=== PATIENT | male | born 1930 | race Caucasian/White ===

== ENCOUNTER 2019-08-26 12:00 | Inpatient (IN) | payer MEDICARE ==
[~2019-08-26] VITALS: Ht 175.3 cm; Wt 102.9 kg
[2019-08-26] MEDS ORDERED: IPRATROPIUM BROMIDE 0.5 MG/2.5 ML NEBU. NEB ONE (12:15)
--- NOTE | 2019-08-26 12:22 | PHYS DOC ---
Adult General Chief Complaint Chief Complaint: SHORTNESS OF BREATH HPI HPI 89-year-old male presents via EMS from [facility]. The patient was sent here because he has had an increasing cough and shortness of breath. He was unable to tolerate his therapy yesterday morning and could not do it again this morning. Patient is unsure if he's had a fever. His cough is mostly dry but he had some sputum production today. He denies nausea, vomiting, diarrhea, chest pain. He has a history of COPD. He is on oxygen 12/02. He has been doing physical therapy because of COPD. He does breathing treatments daily. He has no other complaints at this time. Review of Systems Review of Systems Constitutional: Denies fever or chills [] Eyes: Denies change in visual acuity, redness, or eye pain [] HENT: Denies nasal congestion or sore throat [] Respiratory: cough with shortness of breath [] Cardiovascular: No additional information not addressed in HPI [] GI: Denies abdominal pain, nausea, vomiting, bloody stools or diarrhea [] : Denies dysuria or hematuria [] Musculoskeletal: Denies back pain or joint pain [] Integument: Denies rash or skin lesions [] Neurologic: Denies headache, focal weakness or sensory changes [] Endocrine: Denies polyuria or polydipsia [] All other systems were reviewed and found to be within normal limits, except as documented in this note. Current Medications Current Medications Current Medications Medications (Trade) Dose Ordered Sig/Mana Start Time Stop Time Status Last Admin Dose Admin Ipratropium Marquand (Atrovent) 0.5 mg 1X ONCE 08/26/19 12:15 08/26/19 12:16 UNV Allergies Allergies Allergies Uncoded Allergies Type Severity Reaction Last Updated Verified crab meat Allergy Unknown 08/26/19 Physical Exam Physical Exam Constitutional: Well developed, obese, well nourished, no acute distress, non- toxic appearance. [] HENT: Normocephalic, atraumatic, bilateral external ears normal, oropharynx moist, no oral exudates, nose normal. [] Eyes: PERRLA, EOMI, conjunctiva normal, no discharge. [] Neck: Normal range of motion, no tenderness, supple, no stridor. [] Cardiovascular:Heart rate regular rhythm, no murmur [] Lungs & Thorax: Bilateral breath sounds diminished and with expiratory wheezing [] Abdomen: Bowel sounds normal, soft, no tenderness, no masses, no pulsatile masses. [] Skin: Warm, dry, no erythema, no rash. [] Back: No tenderness, no CVA tenderness. [] Extremities: No tenderness, no cyanosis, no clubbing, ROM intact, no edema. [] Neurologic: Alert and oriented X 3, normal motor function, normal sensory function, no focal deficits noted. [] Psychologic: Affect normal, judgement normal, mood normal. [] EKG EKG [] Radiology/Procedures Radiology/Procedures [] Impressions: PORTABLE CHEST 1V History: Shortness of breath Comparison: None. Findings: Patchy bibasilar opacities. Small left and possible right pleural effusions. No pneumothorax. Impression: 1. Small left pleural effusion. Possible small right pleural effusion. 2. Patchy bibasilar opacities, may represent atelectasis or consolidations. Electronically signed by: Jamaal Santos DO (08/26/2019 12:45 PM) [id number] DICTATED AND SIGNED BY: JAMAAL SANTOS DO DATE: 08/26/19 1245 CC: JENNIFER BERNAL DO; ANTONIO WALLACE MD ~ Course & Med Decision Making Course & Med Decision Making Pertinent Labs and Imaging studies reviewed. (See chart for details) The patient was wheezing on initial exam. I will give him a DuoNeb treatment and 125 Solu-Medrol. His chest x-ray shows bilateral atelectasis, but does not rule out pneumonia. I believe he is at least having a COPD exacerbation. I will admit him to the hospital with the same. I spoke with Dr. Wallace and he has agreed to admit the patient for further treatment. I have given the patient's grandma Rocephin and 500 mg of azithromycin to cover his chest x-ray finding of possible pneumonia. [] Dragon Disclaimer Dragon Disclaimer This electronic medical record was generated, in whole or in part, using a voice recognition dictation system. Departure Departure: Impression: Primary Impression: COPD exacerbation Disposition: ADMITTED INPATIENT Admitting Physician: Antonio Wallace Condition: STABLE Referrals: PCP,NO (PCP) JENNIFER BERNAL DO Aug 26, 2019 12:22
[2019-08-26] MEDS ORDERED: methylPREDNISolone SOD SUCC PF 125 MG/2 ML VIAL. IV ONE (12:30)
[2019-08-26] MEDS ORDERED: IPRATRPIUM/ALBUTEROL 0.5/2.5MG 3 ML NEBU. ONE (12:33)
[2019-08-26 12:42] LABS: CALCIUM 8.1 mg/dL (8.5-10.1); CREATININE 1.1 mg/dL (0.7-1.3); GFR 63.3; POTASSIUM 4.4 mmol/L (3.5-5.1)
--- NOTE | 2019-08-26 12:48 | RAD ---
PORTABLE CHEST 1V History: Shortness of breath Comparison: None. Findings: Patchy bibasilar opacities. Small left and possible right pleural effusions. No pneumothorax. Impression: 1. Small left pleural effusion. Possible small right pleural effusion. 2. Patchy bibasilar opacities, may represent atelectasis or consolidations. Electronically signed by: Jamaal Santos DO (08/26/2019 12:45 PM) [id number]
[2019-08-26 12:54] LABS: ALBUMIN 2.7 g/dL (3.4-5.0); ALBUMIN/GLOBULIN RATIO 0.9 (1.0-1.7); TOTAL BILIRUBIN 0.1 mg/dL (0.2-1.0); TOTAL PROTEIN 5.7 g/dL (6.4-8.2)
[2019-08-26 12:59] LABS: BASO % 0 % (0-3); EOS % 1 % (0-3); HEMATOCRIT 37.9 % (39.0-53.0); HEMOGLOBIN 12.2 g/dL (13.0-17.5); LYMPH # 0.9 x10^3/uL (1.0-4.8); LYMPH % 23 % (24-48); MEAN CORPUSCULAR HEMOGLOBIN 32 pg (25-35); MEAN CORPUSCULAR HGB CONC 32 g/dL (31-37); MEAN CORPUSCULAR VOLUME 100 fL (79-100); MONO # 0.5 x10^3/uL (0.0-1.1); MONO % 12 % (0-9); NEUT # 2.6 x10^3uL (1.8-7.7); NEUT % 64 % (31-73); PLATELET COUNT 148 x10^3/uL (140-400); RED BLOOD COUNT 3.81 x10^6/uL (4.30-5.70); RED CELL DISTRIBUTION WIDTH 13.4 % (11.5-14.5); WHITE BLOOD COUNT 4.1 x10^3/uL (4.0-11.0)
[2019-08-26 13:05] LABS: INFLUENZA A PATIENT NEGATIVE (NEGATIVE); INFLUENZA B PATIENT NEGATIVE (NEGATIVE)
[2019-08-26 14:11] LABS: BACTERIA,URINE 0 /HPF (0-FEW); BILIRUBIN,URINE NEG (NEG); CLARITY,URINE CLEAR; COLOR,URINE YELLOW; GLUCOSE,URINE NEG (NEG); NITRITE,URINE NEG (NEG); RBC,URINE OCC /HPF (0-2); SQUAMOUS EPITHELIAL CELL,UR FEW /LPF; UROBILINOGEN,URINE 0.2 mg/dL (0.2 mg/dL); WBC,URINE OCC /HPF (0-4)
[2019-08-26] MEDS ORDERED: AZITHROMYCIN 250 MG TABLET. PO ONE (14:30)
[2019-08-26] MEDS ORDERED: cefTRIAXone SODIUM 1 GM VIAL ONE (14:53)
[2019-08-26] MEDS ORDERED: IV NORMAL SALINE 50ML 50 ML ONE (14:53)
[2019-08-26 15:56] VITALS: BP 122/65
--- NOTE | 2019-08-26 16:42 | EKG ---
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
--- NOTE | 2019-08-26 18:08 | NUR ---
Pt arrived via EMS from ED for COPD exacerbation. Pt accompanied by family. Vital Signs stable upon arrival. Pt came with 20 g IV in L forearm. 2L 02 NC, pt denies any pain at this time. Pt is wearing non-skid socks, bed in lowest position, oriented pt to floor and unit policies.
--- NOTE | 2019-08-26 19:14 | HP ---
ADMIT DATE: 08/26/2019 HISTORY OF PRESENT ILLNESS: The patient is an 89-year-old male patient currently residing at [facility] for rehabilitation as he was admitted recently to the [facility] with confusion, cough. He was diagnosed with community-acquired pneumonia and acute kidney injury. There he was treated with IV Rocephin and doxycycline, rehydration and oxygen supplementation and was transferred to [facility] to continue the process of rehabilitation. He was brought to the Emergency Room of [facility] because of increasing cough and shortness of breath. He was unable to tolerate his therapy and could not participate with physical therapy yesterday morning, could not it again this morning. He has cough that is mostly dry, but he has some sputum production. He denies any nausea or vomiting. Denied any chest pain. He is known to have COPD and is oxygen and oxygen 24 hours a day, 7 days a week. He was extensively investigated in the Emergency Room and his chest x-ray showed that he has small left-sided pleural effusion and possible small right-sided pleural effusion, has patchy bibasilar opacities, may represent atelectasis or consolidation. He has had lab work done, which showed that his influenza A and B were negative. Urinalysis was unremarkable. His white cell count was normal. His chemistry showed that the troponin was slightly elevated at 0.028 and his chest x-ray was admitted showed patchy bibasilar opacities, small left and possible right pleural effusion, no pneumothorax. However, his beta natriuretic peptide was only 157 and was admitted with COPD exacerbation. We did start him on IV antibiotic and some ceftriaxone and Zithromax as well as steroids, will do 2 more sets of cardiac enzyme given bilateral pleural effusion, probably has also an element of congestive heart failure. PAST MEDICAL HISTORY: Significant for chronic obstructive pulmonary disease, chronic hypoxic respiratory failure, erectile dysfunction, migraine headache, vitamin D deficiency, benign prostatic hypertrophy, squamous cell carcinoma, tobacco use disorder, chronic sinusitis, peripheral vascular disease. 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 PAST SURGICAL HISTORY: Noncontributory. SOCIAL HISTORY: He has flexible cystoscopy. He has also transurethral resection of the prostate, 5 back surgeries, bilateral carpal tunnel release, left hand surgery and for Dupuytren's contracture. FAMILY HISTORY: Noncontributory. SOCIAL HISTORY: He is . He lives alone for the last 4 years. He has 3 sons and 1 daughter. Quit smoking at the beginning of this year, has also stopped drinking. He used to drink heavily. He drinks minimally whiskey. 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 ALLERGIES: HE IS ALLERGIC TO CRAB MEAT. He has no known drug allergies. His code status is full. MEDICATIONS: He is currently on following medications: He is on Tylenol 650 mg every 4 hours as needed, albuterol sulfate 2 puffs every 6 hours. He is on diphenhydramine 25 mg at bedtime. He is on finasteride 5 mg at bedtime, guaifenesin 400 mg by mouth every 8 hours. He is on ipratropium bromide, albuterol sulfate 0.5-2.5 mg in 3 mL by nebulizer every 4 hours. He is on Pepcid 20 mg daily. He is on Singulair 10 mg at bedtime, Symbicort 160/4.5 two puffs twice a day and he is on tamsulosin. He is on terazosin 10 mg at bedtime, Topamax 25 mg for migraine headache one time a day. REVIEW OF SYSTEMS: The patient denied any blurring of vision, cataract, glaucoma or macular degeneration. Denied any earache, tinnitus or sensorineural deafness. Denied any nosebleeds, stuffy nose or postnasal drip. Denied any sore throat, sore tongue, toothache, hoarseness of voice or difficulty swallowing. Denied any nausea, vomiting, diarrhea or constipation. Denied any hematemesis, melena or hematochezia. Denied any dysuria, frequency or hematuria. Denied any chest pain, but did complain of shortness of breath, cough, which is mostly dry. He has also had orthopnea and swelling of both lower extremities. Denied any chills, rigors or fever. PHYSICAL EXAMINATION: GENERAL: On arrival to the Emergency Room, he looked slightly tachypneic, but there is no pallor, jaundice, cyanosis or thyromegaly. No jugular venous distention limb edema. VITAL SIGNS: His heart rate was 102, blood pressure was 113/54, temperature was 98.3, respiratory rate 22, and oxygen saturation was 88% that improved to 91% on 4 liters of oxygen. HEAD, EYES, EARS, NOSE AND THROAT: Showed normocephalic, atraumatic. NECK: Supple. HEART: Showed normal first and second heart sounds. No gallop or murmur. CHEST: Shows central trachea, equally reduced expansion, reduced air entry, vesicular sounds with bilateral scattered rhonchi and very few crepitations bilaterally. ABDOMEN: Distended, soft, nontender. NEUROLOGIC: He was awake, alert, responding appropriately. All cranial nerves intact. EXTREMITIES: He moves extremities without difficulty. LABORATORY DATA: Showed a white cell count of 4100, hemoglobin 12.2, hematocrit 37.9, MCV 100, and platelet count of 148,000. His chemistry showed a serum sodium 142, potassium 4.4, chloride 106, bicarbonate 32, anion gap of 4, BUN 21, creatinine 1.1, estimated GFR was 63 mL per minute. His glucose was 94, calcium was 8.1. Total bilirubin, AST, ALT, alkaline phosphatase were normal. Total protein was 55.7, albumin was 2.7. First set of cardiac enzymes showed troponin to be 0.028. His influenza A and B were negative. His urinalysis was unremarkable. His chest x-ray showed that there is patchy bibasilar opacities, small left and possible right pleural effusion, no pneumothorax. ASSESSMENT AND PLAN: In summary, this is an 89-year-old male patient who was admitted with [id number] hypoxic respiratory failure, chronic obstructive pulmonary disease exacerbation, potentially possibility of pneumonia. He has a multitude of other medical problems including migraine headache, benign prostatic hypertrophy, peripheral vascular disease. His body mass index is 33.9 kilograms square meter. All his first set of cardiac enzyme was slightly elevated and has bilateral pleural effusion. My plan is to do 2 more sets of cardiac enzyme. I will check his fasting lipid profile tomorrow. Continue him on all his medication. I will continue with Solu-Medrol. Continue with IV antibiotic and nebulized treatment and we will consult the cardiology team as he might have [id number] diastolic congestive heart failure, although his BNP is only 157. CHEYENNE MOCK MD DR: KELECHI/michelle JOB#: [id number] / [id number]
[2019-08-26 19:28] VITALS: BP 120/66
[2019-08-26] MEDS: IPRATRPIUM/ALBUTEROL 0.5/2.5MG 3 ML NEBU. NEB SCH (20:37)
[2019-08-26] MEDS: methylPREDNISolone SOD SUCC PF 40 MG/ML VIAL. IV SCH (21:13)
[2019-08-26] MEDS: LACTOBACILLUS RHAMNOSUS GG 1 CAPSULE. PO SCH (21:13)
[2019-08-26 22:48] VITALS: BP 132/62
[2019-08-27] MEDS ORDERED: BUDE10.2 IH (00:29)
[2019-08-27] MEDS ORDERED: FAMO-63 PO (00:29)
[2019-08-27] MEDS ORDERED: ALBU2.5V8 INH (00:29)
[2019-08-27] MEDS ORDERED: FINA5TAB4 PO (00:29)
[2019-08-27] MEDS ORDERED: DIPH25CA58 PO (00:29)
[2019-08-27] MEDS ORDERED: IPRA3AMP29 NEB (00:29)
[2019-08-27] MEDS ORDERED: GUAI600T47 PO (00:29)
[2019-08-27] MEDS ORDERED: TERA10CA3 PO (00:29)
[2019-08-27] MEDS ORDERED: MONT10TA80 PO (00:29)
[2019-08-27] MEDS ORDERED: ACET500T68 PO (00:29)
[2019-08-27] MEDS ORDERED: TOPI25TA52 PO (00:29)
[2019-08-27] MEDS: IPRATRPIUM/ALBUTEROL 0.5/2.5MG 3 ML NEBU. NEB SCH ×4 (04:40→20:41)
[2019-08-27] MEDS: methylPREDNISolone SOD SUCC PF 40 MG/ML VIAL. IV SCH ×2 (05:30→13:47)
[2019-08-27 05:52] VITALS: BP 137/65
[2019-08-27 06:43] LABS: HEMATOCRIT 36.1 % (39.0-53.0); HEMOGLOBIN 11.8 g/dL (13.0-17.5); RED BLOOD COUNT 3.66 x10^6/uL (4.30-5.70); RED CELL DISTRIBUTION WIDTH 13.5 % (11.5-14.5); WHITE BLOOD COUNT 2.2 x10^3/uL (4.0-11.0)
[2019-08-27 06:52] LABS: ALBUMIN 2.6 g/dL (3.4-5.0); ALBUMIN/GLOBULIN RATIO 0.8 (1.0-1.7); CALCIUM 8.3 mg/dL (8.5-10.1); GFR 70.7; POTASSIUM 4.1 mmol/L (3.5-5.1); TOTAL BILIRUBIN 0.2 mg/dL (0.2-1.0); TOTAL PROTEIN 5.9 g/dL (6.4-8.2)
[2019-08-27] MEDS ORDERED: ACETAMINOPHEN 500 MG TABLET PO PRN (07:30)
[2019-08-27] MEDS ORDERED: IPRATRPIUM/ALBUTEROL 0.5/2.5MG 3 ML NEBU. NEB PRN (07:30)
[2019-08-27] MEDS ORDERED: ALBUTEROL SULFATE 2.5 MG/3 ML NEBU. INH PRN (07:30)
[2019-08-27] MEDS: TOPIRAMATE 25 MG TABLET. PO SCH (08:08)
[2019-08-27] MEDS: FAMOTIDINE 20 MG TABLET PO SCH ×2 (08:08→21:04)
[2019-08-27] MEDS: AZITHROMYCIN 250 MG TABLET. PO SCH (08:08)
[2019-08-27] MEDS: TERAZOSIN 5 MG CAPSULE. PO SCH (08:08)
[2019-08-27] MEDS: LACTOBACILLUS RHAMNOSUS GG 1 CAPSULE. PO SCH ×2 (08:09→21:04)
[2019-08-27] MEDS: FINASTERIDE 5 MG TABLET PO SCH (08:09)
--- NOTE | 2019-08-27 08:16 | PDOC2 ---
ARACELI HUNT RELOCATION SPECIALIST 08/27/19 0816: CARDIAC CONSULT DATE OF CONSULT Date Of Consult DATE: 08/27/19 TIME: 08:12 REASON FOR CONSULT Reason for Consult Elevated troponin CHF REFERRING PHYSICIAN Referring Physician Dr. Wallace SOURCE Source: Chart review, Patient HPI History of Present Illness This is an 89 yo male who presented from [facility] secondary to shortness of breath. Has a history of COPD and chronic O2 therapy. Was treated earlier this month at the [facility] for acute respiratory failure with COPD exacerbation. Discharged to [facility] for rehab. Has been there two weeks. Reports chronic shortness of breath. Is occasionally more short of breath. Reports facility "just caught onto this" and he was sent to the ED for further evaluation and treatment. Denies any chest pain, palpitations, dizziness, diaphoresis, or nausea/vomiting. Reports that he had some mild LE edema last week as he was sitting up playing cards with his legs down a lot last week. This edema has resolved. PAST MEDICAL HISTORY Pulmonary: COPD PAST SURGICAL HISTORY Past Surgical History: Appendectomy, Cataract Removal, Other (back surgery ) FAMILY HISTORY Family History: Hypertension SOCIAL HISTORY Smoke: Quit ALCOHOL: occassional Lives: [facility] (for rehab presently ) CURRENT MEDICATIONS Current Medications Current Medications Ipratropium Velma (Atrovent) 0.5 mg 1X ONCE NEB ; Start 08/26/19 at 12:15; Stop 08/26/19 at 12:18; Status DC Methylprednisolone Sodium Succinate (SOLU-Medrol 125MG VIAL) 125 mg 1X ONCE IV Last administered on 08/26/19at 12:46; Start 08/26/19 at 12:30; Stop 08/26/19 at 12:31; Status DC Albuterol/ Ipratropium (Duoneb) 3 ml STK-MED ONCE .ROUTE ; Start 08/26/19 at 12:33; Stop 08/26/19 at 12:33; Status DC Ceftriaxone Sodium 1 gm/ Sodium Chloride 50 ml @ 100 mls/hr 1X ONCE IV Last administered on 08/26/19at 15:07; Start 08/26/19 at 14:30; Stop 08/26/19 at 14:59; Status DC Azithromycin (Zithromax) 500 mg 1X ONCE PO Last administered on 08/26/19at 15:07; Start 08/26/19 at 14:30; Stop 08/26/19 at 14:31; Status DC Sodium Chloride 50 ml @ As Directed STK-MED ONCE .ROUTE ; Start 08/26/19 at 14:53; Stop 08/26/19 at 14:53; Status DC Ceftriaxone Sodium (Rocephin) 1 gm STK-MED ONCE .ROUTE ; Start 08/26/19 at 14:53; Stop 08/26/19 at 14:53; Status DC Albuterol/ Ipratropium (Duoneb) 3 ml RTQID NEB Last administered on 08/27/19at 04:40; Start 08/26/19 at 20:00 Methylprednisolone Sodium Succinate (SOLU-Medrol 40MG VIAL) 40 mg Q8HRS IV Last administered on 08/27/19at 05:30; Start 08/26/19 at 22:00 Ceftriaxone Sodium 1 gm/ Sodium Chloride 50 ml @ 100 mls/hr Q24H IV ; Start 08/27/19 at 14:00 Azithromycin (Zithromax) 250 mg DAILY PO Last administered on 08/27/19at 08:08; Start 08/27/19 at 09:00 Lactobacillus Rhamnosus (Culturelle) 1 cap BID PO Last administered on 08/27/19at 08:09; Start 08/26/19 at 21:00 Acetaminophen (Tylenol) 500 mg PRN Q4HRS PRN PO PAIN / TEMP; Start 08/27/19 at 07:30 Albuterol Sulfate (Ventolin) 2.5 mg PRN Q4HRS PRN INH FOR ASTHMA; Start 08/27/19 at 07:30 Diphenhydramine HCl (Benadryl) 25 mg QHS PO ; Start 08/27/19 at 21:00 Famotidine (Pepcid) 20 mg BID PO Last administered on 08/27/19at 08:08; Start 08/27/19 at 09:00 Finasteride (Proscar) 5 mg DAILY PO Last administered on 08/27/19at 08:09; Start 08/27/19 at 09:00 Guaifenesin (Mucinex Er) 600 mg PRN BID PRN PO COUGH Last administered on 08/27/19at 08:11; Start 08/27/19 at 07:30 Albuterol/ Ipratropium (Duoneb) 3 ml QIDPRN PRN NEB SHORTNESS OF BREATH; Start 08/27/19 at 07:30; Stop 08/27/19 at 07:27; Status DC Montelukast Sodium (Singulair) 10 mg HS PO ; Start 08/27/19 at 21:00 Topiramate (Topamax) 25 mg DAILY PO Last administered on 08/27/19at 08:08; Start 08/27/19 at 09:00 Non-Formulary Medication (Budesonide/ Formoterol Fumarate (Symbicort 160-4.5 Mcg Inhaler)) 2 puff BID IH ; Start 08/27/19 at 09:00; Stop 08/27/19 at 07:29; Status DC Terazosin HCl (Hytrin) 10 mg DAILY PO Last administered on 08/27/19at 08:08; Start 08/27/19 at 09:00 Budesonide (Pulmicort) 0.5 mg RTBID NEB ; Start 08/27/19 at 08:00 Active Scripts Active Reported Duoneb 0.5-3(2.5) Mg/3 Ml (Albuterol/Ipratropium) 3 Ml Ampul.neb 3 Ml NEB QIDPRN PRN Topamax (Topiramate) 25 Mg Tablet 25 Mg PO DAILY Terazosin Hcl 10 Mg Capsule 10 Mg PO DAILY Symbicort 160-4.5 Mcg Inhaler (Budesonide/Formoterol Fumarate) 10.2 Gm Hfa.aer.ad 2 Puff IH BID Montelukast Sodium Tablet (Montelukast Sodium) 10 Mg Tablet 10 Mg PO HS Pepcid (Famotidine) 20 Mg Tablet 20 Mg PO BID Mucinex (Guaifenesin) 600 Mg Tablet.er 400 Mg PO PRN Q8HRS PRN Proventil Hfa Inhaler (Albuterol Sulfate) 6.7 Gm Hfa.aer.ad 2 Puff INH PRN Q4HRS PRN Finasteride 5 Mg Tablet 5 Mg PO DAILY Benadryl (Diphenhydramine Hcl) 25 Mg Capsule 25 Mg PO QHS Acetaminophen 500 Mg Tablet 500 Mg PO PRN Q4HRS PRN ALLERGIES Allergies: Coded Allergies: shellfish derived (Verified Allergy, Unknown, 08/26/19) CRAB MEAT ROS Review of Systems 14 point ROS conducted with pertinent positives noted above in hPI PHYSICAL EXAM General: Alert, Oriented X3, Cooperative, No acute distress HEENT: Atraumatic, Mucous membr. moist/pink Lungs: Other (crackles ) Heart: Regular rate Abdomen: Soft, No tenderness Extremities: No edema, Normal pulses Skin: No rashes, No breakdown Neuro: Normal speech, Sensation intact Psych/Mental Status: Mental status NL, Mood NL MUSCULOSKELETAL: Osteoarthritic changes both hands VITALS Vital Signs Vital Signs Date Time Temp Pulse Resp B/P (MAP) Pulse Ox O2 Delivery O2 Flow Rate FiO2 08/27/19 08:08 90 137/65 08/27/19 05:52 97.6 20 93 Nasal Cannula 4.0 LABS LABS Laboratory Tests Test 08/26/19 12:15 08/26/19 12:20 08/26/19 13:45 08/26/19 19:15 White Blood Count 4.1 x10^3/uL (4.0-11.0) Red Blood Count 3.81 x10^6/uL (4.30-5.70) Hemoglobin 12.2 g/dL (13.0-17.5) Hematocrit 37.9 % (39.0-53.0) Mean Corpuscular Volume 100 fL (79-100) Mean Corpuscular Hemoglobin 32 pg (25-35) Mean Corpuscular Hemoglobin Concent 32 g/dL (31-37) Red Cell Distribution Width 13.4 % (11.5-14.5) Platelet Count 148 x10^3/uL (140-400) Neutrophils (%) (Auto) 64 % (31-73) Lymphocytes (%) (Auto) 23 % (24-48) Monocytes (%) (Auto) 12 % (0-9) Eosinophils (%) (Auto) 1 % (0-3) Basophils (%) (Auto) 0 % (0-3) Neutrophils # (Auto) 2.6 x10^3uL (1.8-7.7) Lymphocytes # (Auto) 0.9 x10^3/uL (1.0-4.8) Monocytes # (Auto) 0.5 x10^3/uL (0.0-1.1) Eosinophils # (Auto) 0.0 x10^3/uL (0.0-0.7) Basophils # (Auto) 0.0 x10^3/uL (0.0-0.2) Sodium Level 142 mmol/L (136-145) Potassium Level 4.4 mmol/L (3.5-5.1) Chloride Level 106 mmol/L (98-107) Carbon Dioxide Level 32 mmol/L (21-32) Anion Gap 4 (6-14) Blood Urea Nitrogen 21 mg/dL (8-26) Creatinine 1.1 mg/dL (0.7-1.3) Estimated GFR (Cockcroft-Gault) 63.3 BUN/Creatinine Ratio 19 (6-20) Glucose Level 94 mg/dL (70-99) Calcium Level 8.1 mg/dL (8.5-10.1) Total Bilirubin 0.1 mg/dL (0.2-1.0) Aspartate Amino Transf (AST/SGOT) 21 U/L (15-37) Alanine Aminotransferase (ALT/SGPT) 23 U/L (16-63) Alkaline Phosphatase 86 U/L (46-116) Troponin I Quantitative 0.028 ng/mL (0-0.055) < 0.017 ng/mL (0-0.055) GG-Eyj-C-Type Natriuretic Peptide 157 pg/mL (0-449) Total Protein 5.7 g/dL (6.4-8.2) Albumin 2.7 g/dL (3.4-5.0) Albumin/Globulin Ratio 0.9 (1.0-1.7) Influenza Type A (Rapid) Negative (NEGATIVE) Influenza Type B (Rapid) Negative (NEGATIVE) Urine Collection Type Unknown Urine Color Yellow Urine Clarity Clear Urine pH 6.0 Urine Specific [place] 1.015 Urine Protein Neg (NEG-TRACE) Urine Glucose (UA) Neg mg/dL (NEG) Urine Ketones (Stick) Neg mg/dL (NEG) Urine Blood Neg (NEG) Urine Nitrite Neg (NEG) Urine Bilirubin Neg (NEG) Urine Urobilinogen Dipstick 0.2 mg/dL (0.2 mg/dL) Urine Leukocyte Esterase Neg (NEG) Urine RBC Occ /HPF (0-2) Urine WBC Occ /HPF (0-4) Urine Squamous Epithelial Cells Few /LPF Urine Bacteria 0 /HPF (0-FEW) Test 08/26/19 23:30 08/27/19 06:23 Troponin I Quantitative < 0.017 ng/mL (0-0.055) White Blood Count 2.2 x10^3/uL (4.0-11.0) Red Blood Count 3.66 x10^6/uL (4.30-5.70) Hemoglobin 11.8 g/dL (13.0-17.5) Hematocrit 36.1 % (39.0-53.0) Mean Corpuscular Volume 99 fL (79-100) Mean Corpuscular Hemoglobin 32 pg (25-35) Mean Corpuscular Hemoglobin Concent 33 g/dL (31-37) Red Cell Distribution Width 13.5 % (11.5-14.5) Platelet Count 147 x10^3/uL (140-400) Sodium Level 142 mmol/L (136-145) Potassium Level 4.1 mmol/L (3.5-5.1) Chloride Level 106 mmol/L (98-107) Carbon Dioxide Level 32 mmol/L (21-32) Anion Gap 4 (6-14) Blood Urea Nitrogen 23 mg/dL (8-26) Creatinine 1.0 mg/dL (0.7-1.3) Estimated GFR (Cockcroft-Gault) 70.7 BUN/Creatinine Ratio 23 (6-20) Glucose Level 136 mg/dL (70-99) Calcium Level 8.3 mg/dL (8.5-10.1) Total Bilirubin 0.2 mg/dL (0.2-1.0) Aspartate Amino Transf (AST/SGOT) 18 U/L (15-37) Alanine Aminotransferase (ALT/SGPT) 19 U/L (16-63) Alkaline Phosphatase 73 U/L (46-116) Total Protein 5.9 g/dL (6.4-8.2) Albumin 2.6 g/dL (3.4-5.0) Albumin/Globulin Ratio 0.8 (1.0-1.7) ASSESSMENT/PLAN Assessment/Plan 1. Acute on chronic respiratory failure with AE COPD. NT Pro BNP WNL and clinically does not look significantly fluid overloaded. 2. Slight troponin bump; peak 0.028. Most probably type II, demand. CP free 3. Protein calorie malnutrition Recommendations Echo pending. Ongoing lung optimization Lasix PRN Supportive care Further pending echo NEGAR RICHMOND MD 08/28/19 1003: CARDIAC CONSULT ASSESSMENT/PLAN Assessment/Plan Late entry for 08/27/19 Pt. seen and examined. Suspect this is mostly related to his COPD Normal LV function No further CV testing needed at this time. ARACELI HUNT APRN Aug 27, 2019 08:16 NEGAR RICHMOND MD Aug 28, 2019 10:03
[2019-08-27] MEDS ORDERED: NON FORMULARY ITEM (Budesonide/Formoterol Fumarate (Symbicort 160-4.5 Mcg Inhaler) 2 PUFF) IH SCH (09:00)
[2019-08-27] MEDS: BUDESONIDE 0.5 MG/2 ML NEBU NEB SCH ×2 (09:39→20:41)
[2019-08-27 10:58] VITALS: BP 129/57
[2019-08-27 15:36] VITALS: BP 122/61
[2019-08-27 16:16] LABS: BGAS PH 7.33 (7.35-7.46)
--- NOTE | 2019-08-27 16:43 | NUR ---
NSG NOTE; RESP STATUS DR MOCK AND I AT BEDSIDE WHEN PT HAD A COUGHING EPISODE- SHORTNESS OF AIR, RUNNY NOSE, NON PROD COUGH, EYES TEARING. PT TOOK SEVERAL MINUTES TO STOP COUGHING AND CATCH HIS BREATH. O2 SATS 85% WITH O2 AT 4 L- O2 INCREASED TO 5L WITH O2 SAT RETURNING TO 90% AFTER SEVERAL MINUTES. REQUESTED AND GIVEN HOT TEA HE STATES IT HELPS SOOTH THE COUGH STATING COUGH MEDICINE DOES NOT HELP HIM. STAT RESP TREATMENT GIVEN AND ABGS DRAWN. ABG RESULTS NOTED BY DR MOCK. NEW ORDERS NOTED.
--- NOTE | 2019-08-27 18:38 | CARD ---
MR#: [id number] Date of Study: 08/27/2019 Ordering Physician: CHEYENNE MOCK, Referring Physician: CHEYENNE MOCK, Tech: Teresa Veloz APPROVED REPORT EXAM: Two-dimensional and M-mode echocardiogram with Doppler and color Doppler. Other Information Quality : FairHR: 84bpm Technically limited study due to body habitus and smoking. INDICATION COPD Dyspnea LV Function:Systolic 2D DIMENSIONS RVDd3.8 (2.9-3.5cm)Left Atrium(2D)2.5 (1.6-4.0cm) IVSd1.1 (0.7-1.1cm)Aortic Root(2D)4.0 (2.0-3.7cm) LVDd5.0 (3.9-5.9cm)LVOT Diameter2.4 (1.8-2.4cm) PWd1.4 (0.7-1.1cm)LVDs2.7 (2.5-4.0cm) FS (%) 45.2 %SV88.7 ml LVEF(%)76.3 (>50%) Aortic Valve AoV Peak Baljinder.137.5cm/sAoV VTI30.2cm AO Peak GR.7.6mmHgLVOT Peak Baljinder.104.6cm/s LVOT VTI 29.85cmAO Mean GR.5mmHg LORENZO (VMAX)3.38qt4DYB (VTI)4.59cm2 Mitral Valve MV E Papaiirx48.7cm/sMV E Peak Gr.7mmHg MV DECEL [id number] A Rghzbcbv438.0cm/s MV E Mean Gr.3mmHgE/A Ratio0.6 Pulmonary Valve PV Peak Ndfbgaii53.3cm/sPV Peak Grad.4mmHg Tricuspid Valve TR P. Eowyhnfl706ea/sRAP SUNZPFJR1yuKw TR Peak Gr.77ftZiHXHA25riPe Pulmonary Vein S1 Ltjdimlw25.6cm/sD2 Tlqxkimp46.2cm/s LEFT VENTRICLE The left ventricle is normal size. There is mild to moderate concentric left ventricular hypertrophy. The left ventricular systolic function is normal. The Ejection Fraction is 55-60%. There is normal L V segmental wall motion. Transmitral Doppler flow pattern is Grade I-abnormal relaxation pattern. RIGHT VENTRICLE The right ventricle is mildly dilated. There is normal right ventricular wall thickness. Systolic fun ction is borderline reduced. ATRIA The left atrium size is normal. The right atrium is mildly to moderately dilated. The interatrial sep zach is intact with no evidence for an atrial septal defect or patent foramen ovale as noted on 2-D or Doppler imaging. AORTIC VALVE The aortic valve is not well visualized. Doppler and Color Flow revealed no significant aortic regurg itation. There is no significant aortic valvular stenosis. MITRAL VALVE The mitral valve is normal in structure and function. There is no evidence of mitral valve prolapse. There is no mitral valve stenosis. Mitral valve has a mean gradient of 2.86 mmHg. Doppler and Color-f low revealed trace mitral regurgitation. TRICUSPID VALVE The tricuspid valve is not well visualized. Doppler and Color Flow revealed trace tricuspid regurgita tion with an estimated PAP of 47 mmHg. There is no tricuspid valve stenosis. PULMONIC VALVE The pulmonic valve is not well visualized. Doppler and Color Flow revealed no pulmonic valvular regur gitation. GREAT VESSELS The aortic root is mildly enlarged. The ascending aorta is Mildly dilated. The IVC is dilated. PERICARDIAL EFFUSION There is no evidence of significant pericardial effusion. Critical Notification Critical Value: No <Conclusion> The left ventricular systolic function is normal. The Ejection Fraction is 55-60%. There is normal LV segmental wall motion. Transmitral Doppler flow pattern is Grade I-abnormal relaxation pattern. Trace mitral regurgitation. Trace tricuspid regurgitation with an estimated PAP of 47 mmHg. There is no evidence of significant pericardial effusion. Signed by : Orlin Stephen, Electronically Approved : 08/27/2019 17:11:12
[2019-08-27 19:42] VITALS: BP 144/77
[2019-08-27] MEDS: methylPREDNISolone SOD SUCC PF 125 MG/2 ML VIAL. IV SCH (21:03)
[2019-08-27] MEDS: diphenhydrAMINE HCL 25 MG CAPSULE PO SCH (21:04)
[2019-08-27] MEDS: MONTELUKAST 10 MG TABLET. PO SCH (21:04)
[2019-08-27 22:48] VITALS: BP 137/85
--- NOTE | 2019-08-28 03:53 | PN ---
DATE: 08/26/2019 SUBJECTIVE: The patient is sitting at the edge of the bed, having severe distressing cough with very scanty tenacious sputum. He was extremely distressed and tachypneic almost to extreme wheezing; however, he managed to get some of this thick mucus and he did very well after that. PHYSICAL EXAMINATION: GENERAL: When I examined him after this episode, he was sitting at the edge of the bed comfortably in no apparent distress. There was no pallor, jaundice or cyanosis. No lymphadenopathy, no thyromegaly. No jugular venous distention. No lower limb edema. VITAL SIGNS: His heart rate was 76, blood pressure 122/61, temperature 97.2, respiratory rate was 18 and oxygen saturation was 91% on 4 liters of oxygen. HEAD, EYES, EARS, NOSE AND THROAT: Showed normocephalic, atraumatic. NECK: Supple. HEART: Showed normal first and second heart sounds. No gallop or murmur. CHEST: Clear to auscultation. No crepitation or rhonchi. ABDOMEN: Distended, soft, nontender. No guarding or rigidity. No organomegaly. All hernial orifices intact. Bowel sounds normal. NEUROLOGIC: He was awake, alert, responding appropriately. All cranial nerves intact. He moves extremities without difficulty, ambulates with a walker. LABORATORY DATA: His lab work this morning showed a white cell count down to 2200, hemoglobin 11.8, hematocrit 36, MCV 99 and platelet count of 147,000. His chemistry showed a serum sodium 142, potassium 4.1, chloride 106, bicarbonate 32, anion gap of 4, BUN 23, creatinine 1, estimated GFR was 70 mL per minute. His glucose 136, calcium was 8.3. Total bilirubin, AST, ALT, alkaline phosphatase were normal. Total protein was 5.9, albumin was 2.6. He has 3 sets of cardiac enzymes that are ruled out myocardial infarction. His serum triglycerides was 31, total cholesterol 129, LDL was ____, HDL cholesterol of 57 and ratio was 2. His influenza A and B were negative. ASSESSMENT: 1. Acute on chronic hypoxic respiratory failure. 2. Chronic obstructive pulmonary disease exacerbation, questionable healthcare-associated pneumonia. 3. He has multiple other medical problems including: A. Migraine headache. B. Benign prostatic hypertrophy. C. Peripheral vascular disease. His ____ of cardiac enzyme was slightly elevated; however, all the 3 sets of cardiac enzyme have ruled out myocardial infarction. PLAN: My plan is to increase his methylprednisolone to 60 mg 3 times a day. Continue with antibiotic. I increase his guaifenesin to 1200 mg twice a day and DuoNeb to be given every 4 hours while awake. I will also do blood gases and probably a CT scan of the chest without contrast and we will decide the further management accordingly. CHEYENNE MOCK MD DR: KELECHI/michelle JOB#: [id number] / [id number]
[2019-08-28] MEDS: IPRATRPIUM/ALBUTEROL 0.5/2.5MG 3 ML NEBU. NEB SCH ×6 (04:58→20:10)
[2019-08-28] MEDS: methylPREDNISolone SOD SUCC PF 125 MG/2 ML VIAL. IV SCH ×3 (06:26→21:28)
[2019-08-28 06:41] LABS: BASO % 0 % (0-3); EOS % 0 % (0-3); HEMATOCRIT 37.7 % (39.0-53.0); HEMOGLOBIN 12.2 g/dL (13.0-17.5); LYMPH # 0.6 x10^3/uL (1.0-4.8); LYMPH % 12 % (24-48); MEAN CORPUSCULAR HEMOGLOBIN 32 pg (25-35); MEAN CORPUSCULAR HGB CONC 32 g/dL (31-37); MEAN CORPUSCULAR VOLUME 99 fL (79-100); MONO # 0.2 x10^3/uL (0.0-1.1); MONO % 5 % (0-9); NEUT # 3.7 x10^3uL (1.8-7.7); NEUT % 83 % (31-73); PLATELET COUNT 158 x10^3/uL (140-400); RED BLOOD COUNT 3.79 x10^6/uL (4.30-5.70); RED CELL DISTRIBUTION WIDTH 13.1 % (11.5-14.5); WHITE BLOOD COUNT 4.5 x10^3/uL (4.0-11.0)
[2019-08-28 06:47] LABS: ALBUMIN 2.9 g/dL (3.4-5.0); ALBUMIN/GLOBULIN RATIO 0.8 (1.0-1.7); CALCIUM 8.4 mg/dL (8.5-10.1); CREATININE 1.1 mg/dL (0.7-1.3); GFR 63.3; POTASSIUM 4.1 mmol/L (3.5-5.1); TOTAL BILIRUBIN 0.2 mg/dL (0.2-1.0); TOTAL PROTEIN 6.4 g/dL (6.4-8.2)
[2019-08-28 07:19] VITALS: BP 144/86
[2019-08-28] MEDS: TOPIRAMATE 25 MG TABLET. PO SCH (08:37)
[2019-08-28] MEDS: TERAZOSIN 5 MG CAPSULE. PO SCH (08:37)
[2019-08-28] MEDS: LACTOBACILLUS RHAMNOSUS GG 1 CAPSULE. PO SCH ×2 (08:37→21:28)
[2019-08-28] MEDS: AZITHROMYCIN 250 MG TABLET. PO SCH (08:38)
[2019-08-28] MEDS: FINASTERIDE 5 MG TABLET PO SCH (08:39)
[2019-08-28] MEDS: FAMOTIDINE 20 MG TABLET PO SCH ×2 (08:39→21:28)
[2019-08-28 10:45] VITALS: BP 149/81
[2019-08-28] MEDS: BUDESONIDE 0.5 MG/2 ML NEBU NEB SCH ×2 (11:01→20:10)
[2019-08-28] MEDS ORDERED: IOHEXOL 300 MG/ML 75 ML VIAL. IV ONE (13:30)
[2019-08-28] MEDS ORDERED: IOHEXOL 350 MG/ML 100 ML VIAL. IV ONE (13:30)
[2019-08-28 14:18] VITALS: BP 138/70
--- NOTE | 2019-08-28 14:27 | RAD ---
EXAM: CT Pulmonary Angiogram INDICATION: Hypoxia and elevated d-dimer TECHNIQUE: Multi-detector row images were acquired from the thoracic inlet through the upper abdomen with the use of IV contrast. Sagittal and coronal images were acquired from the transaxial data. MIP images of the pulmonary arteries were obtained. All CT scans performed at this facility utilize dose optimization techniques as appropriate to the exam, including the following: Automated exposure control and adjustment of the mA and/or KV according to patient size (this includes techniques or standardized protocols for targeted exams where dose is indication/reason for exam). IV CONTRAST: Administered COMPARISON: Portable chest x-ray of 08/26/2019 FINDINGS: PULMONARY ARTERIES: No pulmonary emboli are identified. CARDIOVASCULAR: Coronary calcifications. Aorta is normal caliber. MEDIASTINUM & OFELIA: Mildly prominent aortopulmonary window lymph nodes measuring up to 11 mm short axis diameter. LUNGS: Centrilobular pattern emphysema. Calcified granuloma left lung apex. Noncalcified left lower lobe superior segment pulmonary nodule 6 mm in diameter (image 180 of 369 on series 4). Bilateral lower lobe peribronchial thickening and patchy consolidation, left greater than right. PLEURAL SPACE: No pleural effusions or pneumothorax. OSSEOUS & SOFT TISSUE: Unremarkable ABDOMEN: The visualized portions of the upper abdomen are unremarkable. IMPRESSION: 1. No pulmonary emboli. 2. Centrilobular emphysema with 6 mm noncalcified superior segment left lower lobe pulmonary nodule. Recommend 3-6 month follow-up chest CT and if stable, again at 18-24 months per Fleischner Society guidelines. 3. Bilateral lower lobe peribronchial thickening and patchy consolidative changes, suspicious for aspiration pneumonitis. Correlate clinically. Electronically signed by: Jeff Pablo MD (08/28/2019 2:24 PM) [facility]
[2019-08-28 19:00] VITALS: BP 161/71
[2019-08-28] MEDS: diphenhydrAMINE HCL 25 MG CAPSULE PO SCH (21:28)
[2019-08-28] MEDS: MONTELUKAST 10 MG TABLET. PO SCH (21:28)
[2019-08-28 22:46] VITALS: BP 156/68
[2019-08-29] MEDS: IPRATRPIUM/ALBUTEROL 0.5/2.5MG 3 ML NEBU. NEB SCH ×6 (00:36→21:04)
[2019-08-29 05:01] VITALS: BP 138/85
[2019-08-29] MEDS: methylPREDNISolone SOD SUCC PF 125 MG/2 ML VIAL. IV SCH ×3 (05:55→20:48)
[2019-08-29] MEDS: LACTOBACILLUS RHAMNOSUS GG 1 CAPSULE. PO SCH ×2 (07:48→20:47)
[2019-08-29] MEDS: TOPIRAMATE 25 MG TABLET. PO SCH ×2 (07:49→08:25)
[2019-08-29] MEDS: FINASTERIDE 5 MG TABLET PO SCH (07:50)
[2019-08-29] MEDS: TERAZOSIN 5 MG CAPSULE. PO SCH (07:50)
[2019-08-29] MEDS: AZITHROMYCIN 250 MG TABLET. PO SCH (07:51)
[2019-08-29] MEDS: FAMOTIDINE 20 MG TABLET PO SCH ×2 (07:52→20:47)
[2019-08-29] MEDS: BUDESONIDE 0.5 MG/2 ML NEBU NEB SCH ×2 (08:24→21:04)
--- NOTE | 2019-08-29 08:26 | NUR ---
Patient refused Topramax this am. Stating " i don't need that med, its an old med and should have been discontinued. I don't have head aches or seizures. It[facility]."
--- NOTE | 2019-08-29 09:05 | PN ---
DATE: 08/28/2019 SUBJECTIVE: The patient is sitting on the edge of the bed, eating his lunch comfortably, in no apparent distress. He apparently was seen yesterday by the fiberglass boat builder and it seems that he misunderstood that his life expectancy is only within 6 months and was extremely upset, so I explained to him that he probably misunderstood that and he should not dwell on this. He apparently had his echocardiogram done yesterday, which showed that his left ventricular systolic function is normal, his ejection fraction was 55-60%. There is normal left ventricular segmental wall motion. There is trace mitral regurgitation, tricuspid regurgitation with an estimated pulmonary artery pressure of 47, no evidence of significant pericardial effusion. I did actually increase his steroids, bronchodilators and also Mucinex as he has thick tenacious sputum. I did order a flutter valve, but unfortunately it is not available. PHYSICAL EXAMINATION: GENERAL: When I saw him this afternoon, he looked well and was clearly in no apparent respiratory distress. No pallor, jaundice, cyanosis or thyromegaly. No jugular venous distention. No lower limb edema. VITAL SIGNS: Her heart rate was 107, blood pressure was 149/81, temperature 97.6, respiratory rate was 24, and oxygen saturation was 95%. DICTATION ENDS HERE. CHEYENNE MOCK MD DR: KELECHI/michelle JOB#: [id number] / [id number]
[2019-08-29 11:14] VITALS: BP 133/71
[2019-08-29 11:26] LABS: FECAL OB PT NEGATIVE (NEG)
[2019-08-29 12:40] LABS: BASO % 0 % (0-3); EOS % 0 % (0-3); HEMATOCRIT 37.4 % (39.0-53.0); LYMPH # 0.4 x10^3/uL (1.0-4.8); LYMPH % 7 % (24-48); MEAN CORPUSCULAR HEMOGLOBIN 32 pg (25-35); MEAN CORPUSCULAR HGB CONC 32 g/dL (31-37); MEAN CORPUSCULAR VOLUME 99 fL (79-100); MONO # 0.4 x10^3/uL (0.0-1.1); MONO % 7 % (0-9); NEUT # 4.9 x10^3uL (1.8-7.7); NEUT % 87 % (31-73); PLATELET COUNT 163 x10^3/uL (140-400); RED BLOOD COUNT 3.77 x10^6/uL (4.30-5.70); RED CELL DISTRIBUTION WIDTH 13.7 % (11.5-14.5); WHITE BLOOD COUNT 5.7 x10^3/uL (4.0-11.0)
[2019-08-29 12:53] LABS: ALBUMIN 2.8 g/dL (3.4-5.0); ALBUMIN/GLOBULIN RATIO 0.9 (1.0-1.7); CALCIUM 7.8 mg/dL (8.5-10.1); CREATININE 1.2 mg/dL (0.7-1.3); GFR 57.3; POTASSIUM 3.8 mmol/L (3.5-5.1); TOTAL BILIRUBIN 0.2 mg/dL (0.2-1.0); TOTAL PROTEIN 5.9 g/dL (6.4-8.2)
[2019-08-29 14:49] VITALS: BP 155/82
--- NOTE | 2019-08-29 17:55 | EKG ---
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
[2019-08-29 19:01] VITALS: BP 155/87
[2019-08-29] MEDS: MONTELUKAST 10 MG TABLET. PO SCH (20:47)
[2019-08-29] MEDS: diphenhydrAMINE HCL 25 MG CAPSULE PO SCH (20:47)
[2019-08-29 23:17] VITALS: BP 152/90
[2019-08-30] MEDS: IPRATRPIUM/ALBUTEROL 0.5/2.5MG 3 ML NEBU. NEB SCH ×5 (00:07→15:08)
--- NOTE | 2019-08-30 00:18 | PN ---
DATE: 08/29/2019 SUBJECTIVE: The patient continues to have complaint of shortness of breath and episode of distressing cough with very scanty sputum. PHYSICAL EXAMINATION: GENERAL: When I examined him this afternoon, he looked tachypneic, somewhat pale, but no jaundice, cyanosis or thyromegaly. No jugular venous distention. No lower limb edema. VITAL SIGNS: His heart rate was 102, blood pressure was 155/82, temperature was 98.1, respiratory rate 24 and oxygen saturation was 94% on 4 liters of oxygen. HEAD, EYES, EARS, NOSE AND THROAT: Showed normocephalic, atraumatic. NECK: Supple. HEART: Showed normal first and second heart sounds. No gallop or murmur. CHEST: Shows central trachea, equally reduced expansion, reduced air entry, vesicular sounds with crepitation both sides posteriorly, more so on the left than right. ABDOMEN: Distended, soft, nontender. NEUROLOGIC: He was awake, alert, responding appropriately. All cranial nerves are intact. He moves extremities without difficulty. He does ambulate with a walker for short distances. His intake was 1680, output was 1100. LABORATORY DATA: As of this morning showed a white cell count 5700, hemoglobin 12, hematocrit 37, MCV 99 and platelet count of 163,000. His chemistry showed a serum sodium 144, potassium 3.8, chloride 104, bicarbonate 33, anion gap of 7, BUN 23, creatinine 1.2, estimated GFR was 57 mL per minute. His glucose 186, calcium was 7.8. Total bilirubin, AST, ALT, alkaline phosphatase were normal. Total protein 5.9, albumin was 2.8. His influenza A and B were negative. His stool for occult blood was negative. Urinalysis was unremarkable. ASSESSMENT: 1. Bilateral pulmonary infiltrate, for which he continues to be on IV antibiotic. 2. Chronic obstructive pulmonary disease exacerbation. 3. Mlsws-qk-fkakdjq hypoxic hypercapnic respiratory failure. Other medical problems include: A. Migraine headache. B. Vitamin D deficiency. C. Benign prostatic hypertrophy. D. Peripheral vascular disease. E. Impaired glucose tolerance. PLAN: My plan is to continue with steroids, IV antibiotic and inhalers. We will evaluate him again tomorrow and hopefully discharge him back to [facility]. CHEYENNE MOCK MD DR: KELECHI/michelle JOB#: [id number] / [id number]
[2019-08-30 05:17] VITALS: BP 131/83
[2019-08-30] MEDS: methylPREDNISolone SOD SUCC PF 125 MG/2 ML VIAL. IV SCH ×2 (05:28→13:12)
[2019-08-30] MEDS: FAMOTIDINE 20 MG TABLET PO SCH (08:28)
[2019-08-30] MEDS: FINASTERIDE 5 MG TABLET PO SCH (08:28)
[2019-08-30] MEDS: LACTOBACILLUS RHAMNOSUS GG 1 CAPSULE. PO SCH (08:28)
[2019-08-30] MEDS: TERAZOSIN 5 MG CAPSULE. PO SCH (08:29)
[2019-08-30] MEDS: AZITHROMYCIN 250 MG TABLET. PO SCH (08:29)
[2019-08-30] MEDS: TOPIRAMATE 25 MG TABLET. PO SCH (08:30)
[2019-08-30] MEDS: BUDESONIDE 0.5 MG/2 ML NEBU NEB SCH (10:49)
[2019-08-30 10:51] VITALS: BP 150/77
[2019-08-30] MEDS ORDERED: PRED20TA PO (14:55)
[2019-08-30] MEDS ORDERED: AMOX1TAB61 PO (14:55)
--- NOTE | 2019-08-30 15:32 | DS ---
DATE OF DISCHARGE: 08/26/2019 HOSPITAL COURSE: The patient was admitted from [facility] with worsening shortness of breath, episodes of severe dry hacking cough and acute on chronic hypoxic hypercapnic respiratory failure. He was treated with IV antibiotics, IV steroids and bronchodilators. He is feeling much better now. He has had no further episode of severe cough, chest tightness or wheezing. We did actually a CT scan to eliminate the possibility of pulmonary emboli and the CT angio of the chest showed that he has no pulmonary emboli, but he has centrilobular emphysema with 6 mm noncalcified superior segment left lower lobe pulmonary nodule. He has also bilateral lower lobe peribronchial thickening and patchy consolidative changes suspicious of aspiration pneumonia. The patient was treated with IV antibiotic and steroids. He remained afebrile. PHYSICAL EXAMINATION: GENERAL: When I saw him today, he looked well and was clearly in no apparent respiratory distress. No pallor, jaundice, cyanosis or thyromegaly. No jugular venous distention. No limb edema. VITAL SIGNS: His heart rate was 109, blood pressure was 150/77, temperature was 97.5, respiratory rate was 24, and oxygen saturation was 94% on 4 liters of oxygen. HEAD, EYES, EARS, NOSE AND THROAT: Showed normocephalic, atraumatic. NECK: Supple. HEART: Showed normal first and second heart sounds. No gallop, rub or murmur. CHEST: Clear to auscultation. No crepitation or rhonchi. ABDOMEN: Distended, soft, nontender. NEUROLOGIC: He is awake, alert, responding appropriately. All cranial nerves are intact. He moves extremities without difficulty. He ambulates with a walker. His intake over the last 24 hours was 2100, output was 1700. LABORATORY DATA: As of yesterday, his white cell count was 5700, hemoglobin 12, hematocrit 37, MCV 99 and platelet count of 163,000. Serum sodium was 144, potassium 3.8, chloride 104, bicarbonate 33, anion gap of 7, BUN 23, creatinine was 1.2, estimated GFR was 57 mL per minute. His glucose 186, calcium was 7.8. Total bilirubin, AST, ALT, alkaline phosphatase were normal. Total protein was 5.9, albumin was 2.8. His blood gases showed a pH of 7.33, pCO2 of 59, pO2 of 55, bicarbonate 31, oxygen saturation was 85%. His stool for occult blood was negative. His influenza A and B were negative. Urinalysis essentially unremarkable and his D-dimer was slightly elevated at 0.8 mg/dL. DISCHARGE MEDICATIONS: He was discharged home to continue on amoxicillin/clavulanic acid 875/125 mg 1 tablet twice a day with food for 7 more days, prednisone 40 mg tapering fashion, Tylenol 500 mg p.o. q. 4 hourly, albuterol sulfate 2 puffs every 4 hours as needed, Symbicort 2 puffs twice a day, diphenhydramine 25 mg at bedtime, famotidine for Pepcid 20 mg twice a day, finasteride 5 mg daily, Mucinex 600 mg every 8 hours, ipratropium bromide and albuterol sulfate in 3 mL by nebulizer 4 times a day, montelukast sodium 10 mg at bedtime, terazosin 10 mg at bedtime for benign prostatic hypertrophy and topiramate for Topamax 25 mg daily for migraine headache. FINAL DISCHARGE DIAGNOSES: 1. Healthcare-associated pneumonia. 2. Chronic obstructive pulmonary disease exacerbation. 3. Acute on chronic hypoxic hypercapnic respiratory failure. 4. Migraine headache. 5. Benign prostatic hypertrophy. 6. Peripheral vascular disease. CHEYENNE MOCK MD DR: KELECHI/michelle JOB#: [id number] / [id number]
--- NOTE | 2019-08-30 16:00 | NUR ---
Pt discharged to [facility]. Report called to macario Dixon. Iv discontinued with no complications, pressure dressing applied. Pt left unit via wc accompanied by family member. Discharge instructions faxed to facility.
== END 2019-08-30 15:55 | DRG 177 ==
LOC: ER 12:00 → 1 SOUTH 14:15 → ER 15:20
PROVIDERS: ADMIT Internal Medicine; ATTEND Internal Medicine
DX: J15.6 Pneumonia due to other Gram-negative bacteria (principal); J96.21 Acute and chronic respiratory failure with hypoxia; J96.22 Acute and chronic respiratory failure with hypercapnia; J44.1 Chronic obstructive pulmonary disease with (acute) exacerbation; E46 Unspecified protein-calorie malnutrition; J44.0 Chronic obstructive pulmonary disease with (acute) lower respiratory infection; N17.9 Acute kidney failure, unspecified; J15.9 Unspecified bacterial pneumonia; G43.909 Migraine, unspecified, not intractable, without status migrainosus; G56.03 Carpal tunnel syndrome, bilateral upper limbs; I50.9 Heart failure, unspecified; I73.9 Peripheral vascular disease, unspecified; N40.0 Benign prostatic hyperplasia without lower urinary tract symptoms; Z68.33 Body mass index [BMI] 33.0-33.9, adult; Z82.49 Family history of ischemic heart disease and other diseases of the circulatory system; Z85.828 Personal history of other malignant neoplasm of skin; Z87.891 Personal history of nicotine dependence; Z99.81 Dependence on supplemental oxygen
CPT/HCPCS: 36415; 71045; 71275; 80053; 80061; 81001; 82274; 82803; 83880; 84484; 85025; 85027; 85379; 87804; 93005; 93306; 94640; 94760; 96365; 96375; J0456; J0696; J2920; J2930; J7620; J7626; Q0163; Q9967; 97530; 99285-25